=== PATIENT | male | born 1970 | race Caucasian/White ===

== ENCOUNTER 2021-10-21 11:46 | Emergency (ER) | payer OTHER ==
[2021-10-21 12:54] LABS: CARBON DIOXIDE,CO2 28.9 mmol/L (21.0-32.0); POTASSIUM,K 4.1 mmol/L (3.5-5.1)
[2021-10-22 09:32] VITALS: BP 104/73; PULSE 64
== END 2021-10-21 16:18 | disposition home or self-care (01) ==
LOC: MW.ED 11:46
DX: S09.90XA Unspecified injury of head, initial encounter (principal); W01.198A Fall on same level from slipping, tripping and stumbling with subsequent striking against other object, initial encounter
CPT/HCPCS: 36415; 70450; 70450-26; 72125; 72125-26; 72141; 72141-26; 80053; 85025; 85610; 99284; 99285

== ENCOUNTER 2023-12-02 17:37 | Emergency (ER) | payer OTHER ==
[2023-12-02 18:21] LABS: BASOPHILS ABSOLUTE AUTO 0.06 K/uL (0.00-0.20); BASOPHILS PERCENT AUTO 0.7 % (0.0-1.0); EOSINOPHILS ABSOLUTE AUTO 0.16 K/uL (0.00-0.45); EOSINOPHILS PERCENT AUTO 1.8 % (0.0-6.0); HEMATOCRIT 44.5 % (42.0-52.0); HEMOGLOBIN 15.2 g/dL (14.0-18.0); IMMATURE GRAN ABSOLUTE AUTO 0.02 K/uL (0.00-0.05); IMMATURE GRAN PERCENT AUTO 0.2 % (0.0-0.4); LYMPHOCYTES ABSOLUTE AUTO 1.97 K/uL (1.00-4.80); LYMPHOCYTES PERCENT AUTO 22.6 % (24.0-44.0); MEAN CORPUSCULAR HEMOGLOBIN 30.8 pg (28.0-32.0); MEAN CORPUSCULAR HGB CONC 34.2 g/dL (32.0-36.0); MEAN CORPUSCULAR VOLUME 90.1 fL (83.0-99.0); MEAN PLATELET VOLUME 10.6 fL (9.4-12.4); MONOCYTES ABSOLUTE AUTO 0.58 K/uL (0.00-0.80); MONOCYTES PERCENT AUTO 6.7 % (0.0-8.0); NEUTROPHILS ABSOLUTE AUTO 5.93 K/uL (1.80-7.70); PLATELET COUNT,PLT 216 K/uL (150-400); RED BLOOD CELL COUNT 4.94 M/uL (4.52-5.90); WHITE BLOOD CELL COUNT,WBC 8.72 K/uL (3.9-11.3)
[2023-12-02 18:23] LABS: CALCIUM 8.9 mg/dL (8.5-10.1); CARBON DIOXIDE,CO2 29.6 mmol/L (21.0-32.0); CREATININE 1.4 mg/dL (0.8-1.3); EST CRCL DRUG DOSING (CG) 59.04 mL/min; POTASSIUM,K 3.8 mmol/L (3.5-5.1)
[2023-12-02] MEDS: Sodium Chloride 0.9% 1,000 ML IV SCH (18:26)
[2023-12-02] MEDS: LORazepam 2 MG/ML SDV IVPUSH ONE (18:26)
[2023-12-02 23:25] VITALS: BP 126/80; PULSE 81
== END 2023-12-02 23:06 | disposition home or self-care (01) ==
LOC: MW.ED 17:37
DX: F43.10 Post-traumatic stress disorder, unspecified (principal); Z86.16 Personal history of COVID-19
CPT/HCPCS: 36415; 80048; 82947; 85025; 96361; 96374; 99284; J2060; J7030